=== PATIENT | female | born 1990 | race Caucasian/White ===

== ENCOUNTER → 2022-12-08 | Outpatient (CLI) | payer MEDICAID, MEDICARE, OTHER ==
--- NOTE | 2022-12-08 13:11 | Diagnostic Imaging Report ---
INDICATION: survey. TECHNIQUE: Multiple real-time grayscale images were obtained over the gravid uterus. COMPARISON: None FINDINGS: There is a single live fetus in a variable presentation. heart rate was recorded at 156 bpm. The placenta is posterior and low lying. The placental tip to the internal cervical os is approximately 2.4 cm. Amniotic fluid index is 16 cm. Cervical length is 5.7 cm. kidneys, bladder and stomach are unremarkable. head anatomy was limited due to position. There is a four-chamber heart. There is a three-vessel cord with normal insertion. spine is unremarkable. Biometrical measurements are as follows: Biparietal 7.48 cm, age 30 weeks 1 days. Head circumference 29.23 cm, age 32 weeks 2 days. Abdominal circumference 26.83 cm, age 31 weeks 0 days. Femur length 6.01 cm, age 31 weeks 2 days. Sonographic estimate age: 31 weeks 2 days. Sonographic estimated date of delivery: 02/07/2023. Estimated Weight: 1698 gm (+/- 248 gm). LMP percentile: 24%. heart rate: 156 beats per minute. number: 1 of 1. IMPRESSION: Single live IUP 31 weeks 2 days gestational age. The estimated date of confinement sonographically is 02/07/2023. survey is unremarkable although head anatomy was limited in evaluation due to position. Dictated by: Dictated on workstation # [id number]
== END ==
LOC: RAD 09:03
PROVIDERS: ATTEND Obstetrics & Gynecology
DX: Z36.89 Encounter for other specified antenatal screening (principal); Z3A.31 31 weeks gestation of pregnancy
CPT/HCPCS: 76805

== ENCOUNTER 2023-01-11 17:03 | Emergency (ER) | payer MEDICAID ==
[2023-01-11 17:10] VITALS: BP 109/40
[2023-01-11] MEDS ORDERED: FAMOTIDINE INJ 20MG/2ML VIAL IVP ONE (17:30)
[2023-01-11] MEDS ORDERED: ONDANSETRON INJECTION 4 MG/2 ML (SDV) IVP ONE (17:30)
[2023-01-11] MEDS ORDERED: NS IV 1000 ML 1,000 ML IV SCH ×2 (17:30→19:15)
--- NOTE | 2023-01-11 17:32 | ED Cough/URI ---
General Chief Complaint: Cough/Cold/Flu Symptoms Stated Complaint: SOB, COUGHING, CONGESTION, FEVER, 37 WEEKS PREG Nursing Triage Note: PT HAS HAD COLD COUGH AND TEMPERATURE FOR APPROX 4 DAYS, PT CO OF PAIN IN LOWER ABD PT IS APPROX 33 WEEKS PREG. Source: patient Exam Limitations: no limitations (CARIDAD WAGNER APRN) History of Present Illness Date Seen by Provider: Jan 11, 2023 Time Seen by Provider: 17:18 Initial Comments 32-year-old female at approximately 37 weeks gestation presents to the ER with complaint of not feeling well for the last 3 days. She reports cough, waking up choking on her phlegm, bilateral lower quadrant abdominal pain, vomiting and diarrhea. She reports that on Sunday she was having a lot of vomiting and diarrhea, the diarrhea has subsided, but the vomiting has co ntinued. She is also complaining of bad acid reflux, she has not taken any medications for the gastric reflux. Also reports shortness of air and intermittent fevers. She reports she has taken NyQuil and Tylenol for her symptoms. Denies vaginal bleeding and discharge and dysuria. She states that her due date is February 05. (CARIDAD WAGNER APRN) Allergies and Home Medications Allergies Coded Allergies: No Known Drug Allergies (Unverified , 01/11/23) Patient Home Medication List Home Medication List Reviewed: Yes (CARIDAD WAGNER APRN) Azithromycin (Azithromycin) 250 Mg Tablet, 250 MG PO DAILY Prescribed by: Caridad Parnell on 01/11/231919 Cephalexin (Cephalexin) 500 Mg Tablet, 500 MG PO TID Prescribed by: Caridad Parnell on 01/11/232008 Review of Systems Review of Systems Constitutional: see HPI Expected Date of Delivery: Feb 05, 2023 (CARIDAD WAGNER APRN) Past Nqubcyi-Amxxym-Iufmoa Hx Patient Social History Tobacco Use?: Yes Tobacco type used: Cigarettes Smoking Status: Current Everyday Smoker Substance use?: No Alcohol Use?: No Pt feels they are or have been: No (CARIDAD WAGNER APRN) Immunizations Up To Date Influenza Vaccine Up-to-Date: No; Not Current (CARIDAD WAGNER APRN) Past Medical History Surgery/Hospitalization HX: 3 C-SECTIONS Expected Date of Delivery: Feb 05, 2023 (CARIDAD WAGNER APRN) Physical Exam Vital Signs - First Documented 01/11/23 17:10 Temp 36.9 Pulse 116 Resp 18 B/P (MAP) 109/40 (63) Pulse Ox 98 O2 Delivery Room Air (KEN BACK MD) Capillary Refill : Less Than 3 Seconds (CARIDAD WAGNER APRN) Height: '" Weight: lbs. oz. kg; BMI Method: General Appearance: WD/WN, no apparent distress Neck: supple, normal inspection Respiratory: lungs clear, normal breath sounds, no respiratory distress, no accessory muscle use Cardiovascular: tachycardia Gastrointestinal: normal bowel sounds, non tender, soft, other (Gravid) Extremities: normal range of motion, normal inspection Neurologic/Psychiatric: alert, normal mood/affect Skin: normal color, warm/dry (CARIDAD WAGNER APRN) Progress/Results/Core Measures Suspected Sepsis SIRS Temperature: Pulse: 116 Respiratory Rate: 18 Laboratory Tests 01/11/23 17:59: White Blood Count 16.3H Blood Pressure 109 /40 Mean: 63 Laboratory Tests 01/11/23 17:59: Creatinine 0.72, Platelet Count 258, Total Bilirubin 0.3 (BERNARDCARIDAD LORENZO APRN) Results/Orders Lab Results Laboratory Tests Test 01/11/23 17:15 01/11/23 17:59 01/11/23 18:59 Range/Units Influenza Type A (RT-PCR) Not Detected Not Detecte Influenza Type B (RT-PCR) Not Detected Not Detecte SARS-CoV-2 RNA (RT-PCR) Not Detected Not Detecte White Blood Count 16.3 H 4.3-11.0 10^3/uL Red Blood Count 4.40 3.80-5.11 10^6/uL Hemoglobin 13.2 11.5-16.0 g/dL Hematocrit 40 35-52 % Mean Corpuscular Volume 91 80-99 fL Mean Corpuscular Hemoglobin 30 25-34 pg Mean Corpuscular Hemoglobin Concent 33 32-36 g/dL Red Cell Distribution Width 14.6 H 10.0-14.5 % Platelet Count 258 130-400 10^3/uL Mean Platelet Volume 11.3 9.0-12.2 fL Immature Granulocyte % (Auto) 1 % Neutrophils (%) (Auto) 84 H 42-75 % Lymphocytes (%) (Auto) 12 12-44 % Monocytes (%) (Auto) 3 0-12 % Eosinophils (%) (Auto) 1 0-10 % Basophils (%) (Auto) 0 0-10 % Neutrophils # (Auto) 13.6 H 1.8-7.8 X 10^3 Lymphocytes # (Auto) 1.9 1.0-4.0 X 10^3 Monocytes # (Auto) 0.4 0.0-1.0 X 10^3 Eosinophils # (Auto) 0.1 0.0-0.3 10^3/uL Basophils # (Auto) 0.0 0.0-0.1 10^3/uL Immature Granulocyte # (Auto) 0.2 H 0.0-0.1 10^3/uL Neutrophils % (Manual) 82 % Lymphocytes % (Manual) 13 % Monocytes % (Manual) 4 % Eosinophils % (Manual) 1 % Basophils % (Manual) 0 % Band Neutrophils 0 % Blood Morphology Comment NORMAL Sodium Level 137 135-145 MMOL/L Potassium Level 3.9 3.6-5.0 MMOL/L Chloride Level 105 98-107 MMOL/L Carbon Dioxide Level 22 21-32 MMOL/L Anion Gap 10 5-14 MMOL/L Blood Urea Nitrogen 5 L 7-18 MG/DL Creatinine 0.72 0.60-1.30 MG/DL Estimat Glomerular Filtration Rate 112 BUN/Creatinine Ratio 7 Glucose Level 80 70-105 MG/DL Calcium Level 9.2 8.5-10.1 MG/DL Corrected Calcium 9.8 8.5-10.1 MG/DL Total Bilirubin 0.3 0.1-1.0 MG/DL Aspartate Amino Transf (AST/SGOT) 29 5-34 U/L Alanine Aminotransferase (ALT/SGPT) 28 0-55 U/L Alkaline Phosphatase 194 H 40-136 U/L C-Reactive Protein High Sensitivity 0.87 H 0.00-0.50 MG/DL Total Protein 7.6 6.4-8.2 GM/DL Albumin 3.3 3.2-4.5 GM/DL Urine Color YELLOW Urine Clarity CLEAR Urine pH 6.5 5-9 Urine Specific [place] 1.020 1.016-1.022 Urine Protein NEGATIVE NEGATIVE Urine Glucose (UA) NEGATIVE NEGATIVE Urine Ketones NEGATIVE NEGATIVE Urine Nitrite NEGATIVE NEGATIVE Urine Bilirubin NEGATIVE NEGATIVE Urine Urobilinogen 0.2 < = 1.0 MG/DL Urine Leukocyte Esterase 1+ H NEGATIVE Urine RBC (Auto) NEGATIVE NEGATIVE Urine RBC NONE /HPF Urine WBC 5-10 H /HPF Urine Squamous Epithelial Cells 5-10 /HPF Urine Crystals NONE /LPF Urine Bacteria FEW H /HPF Urine Casts NONE /LPF Urine Mucus NEGATIVE /LPF Urine Yeast FEW H /HPF Urine Culture Indicated YES (KEN BACK MD) Vital Signs/I&O 01/11/23 01/11/23 17:10 17:15 Temp 36.9 Pulse 116 Resp 18 B/P (MAP) 109/40 (63) Pulse Ox 98 O2 Delivery Room Air Room Air 01/11/23 23:59 Intake Total 1000 ml Balance 1000 ml (KEN BACK MD) Vital Signs/I&O Capillary Refill : Less Than 3 Seconds (CARIDAD WAGNER APRN) Blood Pressure Mean: 63 Progress Note : Progress Note Patient seen and evaluated, resting in bed, no acute distress. Based on exam and symptoms, this is likely a viral URI. Workup initiated including CBC, CMP, UA, COVID and flu swab. IV fluids, Pepcid, Zofran ordered. 1914 Labs reviewed. CBC shows elevated WBC 16.3, elevated neutrophil percentage 84. CMP grossly normal. Alkaline phosphatase elevated 194. CRP 0.87. Urinalysis shows 1+ leukocytes, 5-10 WBCs, few bacteria. Will treat for urinary tract infection due to . COVID and flu negative. Second liter of IV fluids ordered due to continued tachycardia, heart rate around 110. Elevated white count may be related to vomiting, but due to the elevated white count and patient's symptoms of shortness of breath and coughing, will go ahead and treat for possible pneumonia. I discussed obtaining an x-ray to evaluate this, but patient did not want to have the x-ray due to being . Patient states she also needs to go because her ride has to go to work. Patient did not want to start the second liter of IV fluids because she needs to go. She does report improvement in symptoms after IV fluids and medications. Will proceed with discharge at this time. Discharge instructions and return precautions provided. (CARIDAD WAGNER APRN) Departure Impression Primary Impression: Upper respiratory infection Disposition: HOME, SELF-CARE Condition: Stable Departure-Patient Inst. Decision time for Depature: 19:18 (CARIDAD WAGNER APRN) Referrals: RENALDO GIBBS DO (PCP/Family) Primary Care Physician Patient Instructions: Viral Upper Respiratory Infection, Adult (DC) Add. Discharge Instructions: Complete full course of antibiotic as prescribed. 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 Call Dr. Gibbs's office tomorrow to schedule a follow-up appointment for early next week. You may take Pepcid [id number]-[id number] for your acid reflux. Return for severe shortness of breath, or any other new, concerning, or worsening symptoms. All discharge instructions reviewed with patient and/or family. Voiced understanding. Scripts Cephalexin (Cephalexin) 500 Mg Tablet 500 MG PO TID for 5 Days, #15 TAB 0 Refills Prov: CARIDAD WAGNER APRN 01/11/23 Azithromycin (Azithromycin) 250 Mg Tablet 250 MG PO DAILY for 4 Days, #4 TAB 0 Refills Prov: CARIDAD WAGNER APRN 01/11/23 ATTENDING PHYSICIAN NOTE: I was physically present as attending physician in the emergency department d uring the care of this patient, but I was not directly involved in the decision making or delivery of care for this patient. (KEN BACK MD) CARIDAD WAGNER APRN Jan 11, 2023 17:32 KEN BACK MD Jan 12, 2023 14:09
[2023-01-11 18:20] LABS: BASOPHILS % (AUTO) 0 % (0-10); EOSINOPHILS # (AUTO) 0.1 10^3/uL (0.0-0.3); EOSINOPHILS % (AUTO) 1 % (0-10); HEMATOCRIT 40 % (35-52); HEMOGLOBIN 13.2 g/dL (11.5-16.0); LYMPHOCYTES # (AUTO) 1.9 X 10^3 (1.0-4.0); LYMPHOCYTES % (AUTO) 12 % (12-44); MEAN CORPUSCULAR HEMOGLOBIN 30 pg (25-34); MEAN CORPUSCULAR HGB CONC 33 g/dL (32-36); MEAN CORPUSCULAR VOLUME 91 fL (80-99); MEAN PLATELET VOLUME 11.3 fL (9.0-12.2); MONOCYTES # (AUTO) 0.4 X 10^3 (0.0-1.0); MONOCYTES % (AUTO) 3 % (0-12); NEUTROPHILS # (AUTO) 13.6 X 10^3 (1.8-7.8); NEUTROPHILS % (AUTO) 84 % (42-75); PLATELET COUNT 258 10^3/uL (130-400); WHITE BLOOD COUNT 16.3 10^3/uL (4.3-11.0)
[2023-01-11 18:24] LABS: ALBUMIN 3.3 GM/DL (3.2-4.5); POTASSIUM 3.9 MMOL/L (3.6-5.0)
[2023-01-11 18:25] LABS: CALCIUM 9.2 MG/DL (8.5-10.1)
[2023-01-11 18:26] LABS: TOTAL PROTEIN 7.6 GM/DL (6.4-8.2)
[2023-01-11 18:28] LABS: BILIRUBIN,TOTAL 0.3 MG/DL (0.1-1.0)
[2023-01-11 18:30] LABS: CREATININE SERUM 0.72 MG/DL (0.60-1.30)
[2023-01-11 18:42] LABS: BAND NEUTROPHILS 0 %; BASOPHILS % (MANUAL) 0 %; EOSINOPHILS % (MANUAL) 1 %; LYMPHOCYTES % (MANUAL) 13 %; MONOCYTES % (MANUAL) 4 %; NEUTROPHILS % (MANUAL) 82 %; RBC MORPH NORMAL
[2023-01-11 19:15] LABS: BACTERIA,URINE FEW /HPF; BILIRUBIN,URINE NEGATIVE (NEGATIVE); CLARITY,URINE CLEAR; COLOR,URINE YELLOW; GLUCOSE, URINE (UA) NEGATIVE (NEGATIVE); KETONES,URINE NEGATIVE (NEGATIVE); LEUKOCYTE ESTERASE ,URINE 1+ (NEGATIVE); NITRITE,URINE NEGATIVE (NEGATIVE); PH,URINE 6.5 (5-9); PROTEIN,URINE NEGATIVE (NEGATIVE)
[2023-01-11 19:16] LABS: YEAST,URINE FEW /HPF
[2023-01-11] MEDS ORDERED: AZIT250T12 PO (19:20)
[2023-01-11] MEDS ORDERED: AZITHROMYCIN 250 MG TABLET PO ONE (19:30)
[2023-01-11] MEDS ORDERED: CEPH500T PO (20:09)
== END 2023-01-11 19:26 | disposition home or self-care (01) ==
LOC: EDUNIT# 17:03 → ER 17:05
DX: O99.513 Diseases of the respiratory system complicating pregnancy, third trimester (principal); J06.9 Acute upper respiratory infection, unspecified; O99.333 Smoking (tobacco) complicating pregnancy, third trimester; F17.210 Nicotine dependence, cigarettes, uncomplicated; Z3A.37 37 weeks gestation of pregnancy
CPT/HCPCS: 36415; 80053; 81000; 85007; 85027; 86141; 87088; 87636

== ENCOUNTER → 2023-01-22 | Outpatient (CLI) | payer MEDICAID ==
[~2023-01-22] VITALS: Ht 165.1 cm; Wt 90.6 kg
[~2023-01-22] MED LIST: ACET325C7 PO; AZIT250T12 PO; CEPH500T PO; INSU100V6 SQ; OMEP-254 PO; PNV-9 PO
== END | disposition home or self-care (01) ==
LOC: PREOP 05:34
PROVIDERS: ATTEND Obstetrics & Gynecology
DX: Z01.818 Encounter for other preprocedural examination (principal)

== ENCOUNTER 2023-01-26 07:07 | Inpatient (IN) | payer MEDICAID ==
[2023-01-26] VITALS (13 sets, daily range): BP systolic 80–141; BP diastolic 40–77
[~2023-01-26] VITALS: Ht 165.1 cm; Wt 90.0 kg
[2023-01-26] MEDS ORDERED: CATHETER FLUSH 10 ML SYR IV PRN (07:30)
[2023-01-26] MEDS ORDERED: ceFAZolin INJECTION 2,000 MG in NS (IVPB) 50 ML 50 ML IV ONE ×2 (07:30→08:45)
[2023-01-26] MEDS ORDERED: METOCLOPRAMIDE INJ 10 MG/2 ML IV ONE (07:30)
[2023-01-26] MEDS ORDERED: LACTATED RINGERS 1,000 ML 1,000 ML IV PRN ×2 (07:30)
[2023-01-26] MEDS ORDERED: CITRIC ACID/SODIUM CITRATE ORAL SOLN 30 ML PO ONE (07:30)
[2023-01-26] MEDS ORDERED: ceFAZolin INJECTION 2,000 MG ONE (08:11)
[2023-01-26] MEDS ORDERED: FAMOTIDINE INJ 20MG/2ML VIAL ONE (08:11)
[2023-01-26] MEDS ORDERED: NS (IVPB) 50 ML 50 ML ONE (08:12)
--- NOTE | 2023-01-26 08:34 | History & Physical-OB ---
OB - Chief Complaint & HPI Date/Time Date of Admission: Date of Admission: Jan 26, 2023 at 07:07 Date seen by a Provider: Jan 26, 2023 Time Seen by a Provider: 08:25 Chief Complaint/History OB-Reason for Admission/Chief: Section Hx : 4 Hx Para: 3 Expected Date of Delivery: Feb 05, 2023 Gestational Age in Weeks: 38 Gestational Age in Days: 4 Indication for : desires repeat Admission Nurse Assessment Rev: Yes History of Labs O+ GBS + Hep B/C neg HIV neg RPR neg RI Other This 32-year-old G4, P3 presents to labor and delivery at 38 weeks 4 days for a repeat low-transverse section. Her has been complicated by gestational diabetes requiring insulin. GBS is positive. Patient verbalized understanding of the risk benefits and alternatives which we discussed in detail. Patient had all of her questions answered to her satisfaction and was ready to proceed. Allergies and Home Medications Allergies Coded Allergies: adhesive tape (Verified Allergy, Unknown, Rash, 01/22/23) latex (Verified Allergy, Unknown, Rash, 01/22/23) BLISTERS Patient Home Medication List Home Medication List Reviewed: Yes Acetaminophen (Tylenol) 325 Mg Capsule, 325 MG PO, (Reported) Entered as Reported by: Molly Ortiz on 01/22/23936 Last Action: Reviewed Insulin Glargine,Hum.rec.anlog (Lantus) 100 Unit/Ml Vial, 100 UNIT SQ, (Reported) Entered as Reported by: Molly Ortiz on 01/22/23953 Last Action: Reviewed Omeprazole Magnesium (Omeprazole Magnesium) 20 Mg Capsule.dr, 20 MG PO, (Repor tammy) Entered as Reported by: Molly Ortiz on 01/22/23936 Last Action: Reviewed Pnv 119/Iron Fum/Folic Acid ( 19 Tablet) 29 Mg Iron-1 Mg Tablet, 1 EACH PO, (Reported) Entered as Reported by: Molly Ortiz on 01/22/23936 Last Action: Reviewed Discontinued Medications Azithromycin (Azithromycin) 250 Mg Tablet, 250 MG PO DAILY Discontinued Reason: No Longer Taking Prescribed by: Caridad Parnell on 01/11/231919 Cephalexin (Cephalexin) 500 Mg Tablet, 500 MG PO TID Discontinued Reason: No Longer Taking Prescribed by: Caridad Parnell on 01/11/232008 OB - History Hx of Present Care: Yes Ultrasounds: Normal mid trimester US Obstetrical Complications: Gestational Diabetes Information Maternal Gestational Diabetes: Yes Obstetrical History Hx : 4 Hx Para: 3 Hx # Term Pregnancies: 3 Number of Living Children: 3 Hx Maternal Gestational Diabet: Yes Delivery History Hx Section: Yes Risk Variables Obstetrical Risk Variables: POA Gestational Diabetes, POA Previous Patient Past Medical History GDM Social History/Family History Alcohol Use: Denies Use Smoking Cessation: Never smoker Immunizations Influenza Vaccine Up-to-Date: Yes; Up-to-Date OB - Admission Exam Physical Exam HEENT: NCAT Heart: Rhythm Normal Lungs: Clear Abdomen: Gravid Extremities: Normal Reflexes: Normal Cervical Dilatation: None Heart Rate: 130's Accelerations: Accelerations Present Decelerations: No Decelerations Short Term Variability: 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
--- NOTE | 2023-01-26 08:37 | Cesarean Section Operative ---
Procedure Procedure Note Pre-operative Diagnosis: Cassidy Mayes is a 32-year-old who presents at 38 weeks 4 days EGA with gestational diabetes class A2 and history of previous section Post-operative Diagnosis: same + liveborn female Procedure: Repeat low transverse section Physician: COLETTE MCKENZIE Pharmacy Care Coordinator: Ron Cary MD Estimated blood loss: 500 mL Disposition: Counts correct x3 Stable to PACU Findings: Liveborn female , Apgars 8/9 weight 6lbs, intact placenta, 3vc, normal appearing uterus, tubes, and ovaries. Indications:Cassidy Mayes is a 32-year-old who presented at 38 weeks 4 days for a repeat low-transverse section secondary to repeat section and gestational diabetes on insulin. Procedure Details: Informed consent was obtained and signed patient was taken the OR suite placed under spinal anesthesia placed in the dorsal supine position prepped and draped in the usual sterile fashion. A timeout was performed. A Pfannenstiel skin incision was made carried down to level the fascia the fascia was nicked and incised bilaterally reflected off the rectus abdominis muscle both superiorly and inferiorly the rectus abdominis muscle was the midline and and the peritoneum was entered into bluntly and extended bilaterally. An Rob self- retaining retractor was then inserted after confirming that there was no adhesions and this was then placed a low transverse uterine incision was made and extended bilaterally the head was delivered atraumatically with the aid of the Senseman forcep. The mouth and nose were bulb suctioned and the posterior shoulder delivered followed by the anterior shoulder followed by the rest the . The infant was placed on a blue towel and was dried off and after 60 seconds the cord was clamped and then cut and the infant was placed into the nurses care underneath the warmer. The placenta was spontaneously removed uterus was exteriorized and cleared of all clot debris the uterine incision was reapproximated using 0 Vicryl in a running locking fashion and imbricated using 0 Vicryl in running fashion for excellent hemostasis. U terus tubes and ovaries were noted to be normal replaced back inside the abdominal cavity without any difficulty the abdomen was then irrigated using 300 cc of normal saline. The incision was inspected and was noted to be hemostatic Interceed was placed over the incision site. Peritoneum and rectus abdominis muscle was reapproximated using 0 Vicryl in running fashion and the fascia was reapproximated using 1-0 Vicryl in a running fashion and the skin was reapproximated and 3-0 Monocryl in a subcuticular fashion and then sealed with Dermabond. All my counts were correct x 3 estimated blood loss was 500 cc fluids were 1000 cc and urine output was 30 cc. The surgeon was Colette Mckenzie DO and an assistant art director was Caridad Cary MD. Thank you very much this is the end of dictation COLETTE MCKENZIE DO Jan 26, 2023 08:37
[2023-01-26 08:44] LABS: BASOPHILS % (AUTO) 0 % (0-10); EOSINOPHILS # (AUTO) 0.2 10^3/uL (0.0-0.3); EOSINOPHILS % (AUTO) 1 % (0-10); HEMATOCRIT 35 % (35-52); HEMOGLOBIN 11.8 g/dL (11.5-16.0); LYMPHOCYTES % (AUTO) 12 % (12-44); MEAN CORPUSCULAR HEMOGLOBIN 30 pg (25-34); MEAN CORPUSCULAR HGB CONC 33 g/dL (32-36); MEAN CORPUSCULAR VOLUME 90 fL (80-99); MEAN PLATELET VOLUME 11.3 fL (9.0-12.2); MONOCYTES # (AUTO) 0.9 10^3/uL (0.0-1.0); MONOCYTES % (AUTO) 5 % (0-12); NEUTROPHILS # (AUTO) 13.6 10^3/uL (1.8-7.8); NEUTROPHILS % (AUTO) 81 % (42-75); PLATELET COUNT 301 10^3/uL (130-400); WHITE BLOOD COUNT 16.8 10^3/uL (4.3-11.0)
[2023-01-26] MEDS ORDERED: FAMOTIDINE INJ 20MG/2ML VIAL IVP ONE (08:45)
[2023-01-26] MEDS ORDERED: fentaNYL INJECTION 100 MCG/2 ML VIAL ONE (09:06)
[2023-01-26] MEDS ORDERED: KETOROLAC INJ 30 MG/ML VIAL IV SCH (09:15)
[2023-01-26] MEDS ORDERED: Tetanus/Diphtheria/Pertussis (Acell) ADULT Vaccine 0.5 ML IM SCH (09:15)
[2023-01-26] MEDS ORDERED: MEASLES, MUMPS, RUBELLA VACCINE (MMR) SC SCH (09:15)
[2023-01-26] MEDS ORDERED: morphine INJ 4 MG/ML 1 ML (VIAL/SYRINGE) IV PRN (09:15)
[2023-01-26] MEDS ORDERED: ONDANSETRON INJECTION 4 MG/2 ML (SDV) IVP PRN (09:15)
[2023-01-26] MEDS ORDERED: OXYTOCIN DRIP PRE-MIX 500 ML IV SCH (09:15)
[2023-01-26] MEDS ORDERED: NALOXONE 0.4 MG/ML 1 ML VIAL IV PRN ×2 (09:15→10:45)
[2023-01-26 09:53] LABS: LYMPHOCYTES % (MANUAL) 14 %; MONOCYTES % (MANUAL) 8 %; NEUTROPHILS % (MANUAL) 78 %
[2023-01-26] MEDS ORDERED: MIDAZOLAM INJ 2 MG/2 ML VIAL ONE (09:53)
[2023-01-26 09:54] LABS: PLATELET ESTIMATE ADQ; RBC MORPH NORMAL
[2023-01-26 09:57] LABS: AMPHETAMINE SCREEN, URINE NEGATIVE (NEGATIVE); CANNABINOID SCREEN, URINE POSITIVE (NEGATIVE); COCAINE SCREEN URINE NEGATIVE (NEGATIVE)
[2023-01-26 09:58] LABS: BARBITURATE SCREEN URINE NEGATIVE (NEGATIVE); METHADONE STAT NEGATIVE (NEGATIVE); OPIATE SCREEN URINE NEGATIVE (NEGATIVE); OXYCODONE STAT NEGATIVE (NEGATIVE); TRICYCLIC ANTIDEPRESSANTS SCRE NEGATIVE (NEGATIVE)
[2023-01-26] MEDS ORDERED: ROPIVACAINE 5 MG/ML 30ML VIAL ONE (09:58)
[2023-01-26] MEDS ORDERED: OXYTOCIN DRIP PRE-MIX 1,000 ML IV ONE (10:04)
[2023-01-26] MEDS ORDERED: PHENYLEPHRINE 100 MCG/ML 10 ML (ANESTHESIA) SYR ONE (10:13)
[2023-01-26] MEDS ORDERED: DOCU100C37 PO (10:19)
[2023-01-26] MEDS ORDERED: IBUP-1780 PO (10:19)
[2023-01-26] MEDS ORDERED: OXC5T PO (10:19)
[2023-01-26] MEDS ORDERED: diphenhydrAMINE INJ 50 MG/ML VIAL IV PRN (10:45)
[2023-01-26] MEDS ORDERED: ONDANSETRON INJECTION 4 MG/2 ML (SDV) IV PRN (10:45)
[2023-01-26] MEDS ORDERED: IBUPROFEN 800 MG TABLET PO ONE (12:06)
[2023-01-26] MEDS: IBUPROFEN 800 MG TABLET PO SCH ×2 (12:07→20:20)
[2023-01-26] MEDS: ACETAMINOPHEN 500 MG TABLET PO SCH ×2 (12:07→18:14)
[2023-01-26] MEDS ORDERED: CATHETER FLUSH 10 ML SYR IV SCH (14:00)
[2023-01-26] MEDS: oxyCODONE IMMEDIATE RELEASE 5 MG TABLET PO PRN ×2 (14:36→18:48)
[2023-01-26] MEDS: NICOTINE 14 MG PATCH TD SCH (17:22)
[2023-01-26] MEDS: DOCUSATE SODIUM 100 MG CAPSULE PO SCH (23:08)
[2023-01-26] MEDS: HYDROcodone/ACETAMINOPHEN 5 MG/325 MG TABLET PO PRN (23:09)
[2023-01-27] MEDS: HYDROcodone/ACETAMINOPHEN 5 MG/325 MG TABLET PO PRN ×5 (03:28→21:46)
[2023-01-27] MEDS: ACETAMINOPHEN 500 MG TABLET PO SCH ×4 (03:29→21:43)
[2023-01-27 03:30] VITALS: BP 106/75
[2023-01-27] MEDS: IBUPROFEN 800 MG TABLET PO SCH ×3 (05:41→21:46)
[2023-01-27 05:45] LABS: BASOPHILS # (AUTO) 0.1 10^3/uL (0.0-0.1); BASOPHILS % (AUTO) 0 % (0-10); EOSINOPHILS # (AUTO) 0.2 10^3/uL (0.0-0.3); EOSINOPHILS % (AUTO) 2 % (0-10); HEMATOCRIT 34 % (35-52); HEMOGLOBIN 11.3 g/dL (11.5-16.0); LYMPHOCYTES # (AUTO) 1.9 10^3/uL (1.0-4.0); LYMPHOCYTES % (AUTO) 15 % (12-44); MEAN CORPUSCULAR HEMOGLOBIN 30 pg (25-34); MEAN CORPUSCULAR HGB CONC 33 g/dL (32-36); MEAN CORPUSCULAR VOLUME 90 fL (80-99); MEAN PLATELET VOLUME 11.2 fL (9.0-12.2); MONOCYTES # (AUTO) 0.6 10^3/uL (0.0-1.0); MONOCYTES % (AUTO) 5 % (0-12); NEUTROPHILS # (AUTO) 10.1 10^3/uL (1.8-7.8); NEUTROPHILS % (AUTO) 78 % (42-75); PLATELET COUNT 265 10^3/uL (130-400)
[2023-01-27] MEDS: DOCUSATE SODIUM 100 MG CAPSULE PO SCH ×2 (07:57→21:46)
[2023-01-27 08:00] VITALS: BP 123/71
[2023-01-27] MEDS ORDERED: NICOTINE PATCH REMOVAL TP SCH (08:59)
[2023-01-27] MEDS ORDERED: IBUPROFEN 800 MG TABLET PO SCH (09:15)
--- NOTE | 2023-01-27 09:27 | Postpartum Progress Note ---
Post Op Post-operative Day #1 Repeat , 3 prior A2DM off insulin post-op Subjective: Patient right sided musculoskeletal pain over rib #6, no chest pain or SOB, slightly improved with ambulation, consistent with positional, started this AM. Overall pain mainly incisional. Advised to ambulate, report if worsens. Ambulating, voiding after patel removed. Tolerating a regular diet without nausea or vomiting. Normal lochia. Pain is better controlled with oral pain medications. Objective: VSS/AF, HCT stable Postprandial sugars all normal. Physical Exam: General - Alert and oriented, no apparent distress Abdomen - Soft, appropriately tender to palpation, non-distended, fundus firm at 2 cm below umbilicus and firm and non-tender Incision - clean, dry and intact; no erythema or induration, no drainage Extremities - no edema, negative Abelardo's bilaterally Assessment: post-operative day # 1, status post repeat doing well. Recovering well, hemodynamically stable Plan: Routine post-operative care. Patient voiced no questions or concerns. Encourage ambulation. Continue incentive spirometry. Plan for discharge: Anticipate discharge home tomorrow. RN in room during encounter and exam. Vitals - Labs Vital Signs - I&O Vital Signs Date Time Temp Pulse Resp B/P (MAP) Pulse Ox O2 Delivery O2 Flow Rate FiO2 01/27/23 03:30 36.5 71 16 106/75 (85) 98 Room Air 01/26/23 23:10 36.7 80 18 124/51 (75) 97 Room Air 01/26/23 20:20 36.6 90 18 141/70 (93) 96 Room Air 01/26/23 16:35 36.7 77 18 127/68 (87) 97 Room Air 01/26/23 12:11 36.4 88 18 114/70 (85) 100 Room Air 01/26/23 11:15 36.0 14 104/71 (82) 100 Room Air 01/26/23 11:10 Room Air 01/26/23 11:10 36.0 16 100/62 (75) 100 Room Air 01/26/23 11:05 12 98/61 (73) 100 Room Air 01/26/23 10:56 Room Air 01/26/23 10:56 36.0 18 89/44 (59) 100 Room Air 01/26/23 10:41 Room Air 12/8/23 10:41 36.0 18 104/62 (76) 100 Room Air 01/26/23 10:33 80/59 (66) 01/26/23 10:25 81/57 (65) 01/26/23 10:18 Room Air 01/26/23 10:18 36.0 18 87/56 (66) 97 Room Air I & O 01/27/23 07:00 Intake Total 1050 ml Output Total 130 ml Balance 920 ml Labs Laboratory Tests 01/26/23 18:58: Glucometer 93 01/27/23 04:58: White Blood Count 13.0H, Red Blood Count 3.82, Hemoglobin 11.3L, Hematocrit 34L, Mean Corpuscular Volume 90, Mean Corpuscular Hemoglobin 30, Mean Corpuscular Hemoglobin Concent 33, Red Cell Distribution Width 14.8H, Platelet Count 265, Mean Platelet Volume 11.2, Immature Granulocyte % (Auto) 1, Neutrophils (%) (Auto) 78H, Lymphocytes (%) (Auto) 15, Monocytes (%) (Auto) 5, Eosinophils (%) (Auto) 2, Basophils (%) (Auto) 0, Neutrophils # (Auto) 10.1H, Lymphocytes # (Auto) 1.9, Monocytes # (Auto) 0.6, Eosinophils # (Auto) 0.2, Basophils # (Auto) 0.1, Immature Granulocyte # (Auto) 0.1, Glucose Level 90 HECTOR SCHULTZ DO Jan 27, 2023 09:27
[2023-01-27] MEDS: NICOTINE 14 MG PATCH TD SCH (12:27)
--- NOTE | 2023-01-27 12:32 | Anesthesia-Regional Post-Op ---
Regional Patient Condition Mental Status: Alert, Oriented x3 Circulation: Same as Pre-Op Headache: Absent Sensation: Full Recovery Motor Block: Absent Post Op Complications Complications None Follow Up Care/Instructions Patient Instructions None needed. Anesthesia/Patient Condition Patient is doing well, no complaints, stable vital signs, no apparent adverse anesthesia problems. No complications reported per nursing. CASANDRA KENT CRNA Jan 27, 2023 12:32
[2023-01-27 15:54] VITALS: BP 125/71
[2023-01-27 21:50] VITALS: BP 133/85
[2023-01-28 02:30] VITALS: BP 142/76
[2023-01-28] MEDS: HYDROcodone/ACETAMINOPHEN 5 MG/325 MG TABLET PO PRN ×3 (02:31→11:45)
[2023-01-28] MEDS: ACETAMINOPHEN 500 MG TABLET PO SCH (03:08)
[2023-01-28] MEDS: IBUPROFEN 800 MG TABLET PO SCH ×2 (06:23→11:44)
--- NOTE | 2023-01-28 08:44 | Short Stay Summary ---
Discharge Summary Hospital Course Final Diagnosis: 38 weeks, Gestational Diabetes A2, Prior Hospital Course Date of Admission: Jan 26, 2023 at 07:07 Admission Diagnosis : Family Physician/Provider: Laure,Local Physician Date of Discharge: 01/28/23 Discharge Diagnosis: 38 Weeks, Gestational Diabetes A2, Prior Hospital Course: Patient underwent repeat under spinal anesthesia on 01/26/23 productive of viable 6 lbs female infant with 8/9. Patient was off insulin immed iately post-op with normal blood sugars. Her post-op course was uncomplicated. She will follow up with Dr. Gibbs in 7-10 days for an incision check, call for an appointment. Routine instructions. Discussed lifestyle changes due to increased risk of DM later in life, patient voiced understanding. Labs and Pending Lab Test: Home Meds Active Docusate Sodium 100 Mg Capsule 100 Mg PO BID Take 1 tablet twice a day Oxyir Tablet (Oxycodone HCl) 5 Mg Tab 5 Mg PO Q6H PRN Take 1 tablet every 6 hours as needed for pain Ibuprofen 800 Mg Tablet 800 Mg PO Q8H Take 1 tablet every 8 hours as needed for pain Reported Lantus (Insulin Glargine,Hum.rec.anlog) 100 Unit/Ml Vial 100 Unit SQ Omeprazole Magnesium 20 Mg Capsule. 20 Mg PO Tylenol (Acetaminophen) 325 Mg Capsule 325 Mg PO 19 Tablet (Pnv 119/Iron Fum/Folic Acid) 29 Mg Iron-1 Mg Tablet 1 Each PO Assessment/Pt Instructions 38 weeks Gestational Diabetes A2 Prior Section Discharge Instructions Discharge Diet: No Restrictions Consultations None Discharge Physical Examination General Appearance: Alert, Oriented X3 Abdominal: No Tenderness, Other (Uterus at 4 cm below umbilicus, firm and non- tender, incision clean and dry no erythema) Extremities: No Edema, No Tenderness/Swelling Skin: No Rashes Neuro: Normal Gait Psych/Mental Status: Mental Status NL Allergies: Coded Allergies: adhesive tape (Verified Allergy, Unknown, Rash, 01/22/23) latex (Verified Allergy, Unknown, Rash, 01/22/23) BLISTERS Discharge Summary Date of Admission Jan 26, 2023 at 07:07 Date of Discharge 01/28/23 Discharge Date: Jan 28, 2023 Discharge Time: 09:45 Admission Diagnosis 38 weeks Gestational Diabetes A2 Prior Consults/Procedures Consulations None Procedures Spinal Anesthesia Section Discharge Diagnosis 38 Weeks Gestational Diabetes A2 Prior Section HECTOR SCHULTZ DO Jan 28, 2023 08:43
[2023-01-28 09:10] VITALS: BP 133/85
[2023-01-28] MEDS: DOCUSATE SODIUM 100 MG CAPSULE PO SCH (09:13)
[2023-01-28 13:30] VITALS: BP 133/85
== END 2023-01-28 13:30 | disposition home or self-care (01) | DRG 788 ==
LOC: LDRP 07:07
PROVIDERS: ADMIT Obstetrics & Gynecology; ATTEND Obstetrics & Gynecology
PROC: 10D00Z1 Extraction of Products of Conception, Low, Open Approach (ICD-10-PCS; principal; 2023-01-26 09:00)
DX: O34.211 Maternal care for low transverse scar from previous cesarean delivery (principal); O24.424 Gestational diabetes mellitus in childbirth, insulin controlled; Z3A.38 38 weeks gestation of pregnancy; Z37.0 Single live birth; O99.824 Streptococcus B carrier state complicating childbirth; Z91.040 Latex allergy status; Z88.8 Allergy status to other drugs, medicaments and biological substances; Z79.4 Long term (current) use of insulin
CPT/HCPCS: 36415; 80306; 82947; 85007; 85025; 85027; 86850; 86900; 86901; 94664